=== PATIENT | male | born 1980 | race African-American/Black ===

== ENCOUNTER 2020-10-04 13:25 | Inpatient (IN) | payer OTHER ==
[2020-10-04 14:17] VITALS: BMI 26.1
[2020-10-04] MEDS ORDERED: NALOXONE (NARCAN) HCL 4 MG/0.1 ML SPRAY NS PRN (14:52)
[2020-10-04] MEDS ORDERED: BISMUTH SUBSALICYLATE 262 MG/15 ML BTL PO PRN (14:52)
[2020-10-04] MEDS ORDERED: IBUPROFEN 400 MG TABLET (FP) PO PRN (14:52)
[2020-10-04] MEDS ORDERED: ONDANSETRON *ODT* 4 MG TABLET SL PRN (14:52)
[2020-10-04] MEDS ORDERED: MENTHOL/PHENOL 1 EACH UD MM PRN (14:52)
[2020-10-04] MEDS ORDERED: METHADONE HCL 10 MG TABLET (FOR DETOX USE ONLY) PO ONE (14:52)
[2020-10-04] MEDS ORDERED: METHOCARBAMOL 500 MG TABLET PO PRN (14:52)
[2020-10-04] MEDS ORDERED: cloNIDine HCL 0.1 MG TABLET PO PRN (14:52)
[2020-10-04] MEDS ORDERED: MAG HYDROX/AL HYDROX/SIMETH 30 ML UNIT-DOSE CUP PO PRN (14:52)
[2020-10-04] MEDS ORDERED: ACETAMINOPHEN 325 MG TABLET (FP) PO PRN ×2 (14:52)
[2020-10-04] MEDS ORDERED: MAGNESIUM CITRATE 300 ML BOTTLE PO PRN (14:52)
[2020-10-04] MEDS ORDERED: MAGNESIUM HYDROX 2400MG/30ML ORAL SUSPENSION 30 ML CUP PO PRN (14:52)
[2020-10-04] MEDS: PRENATAL VITAMINS W/ FOLIC ACID TABLET (FP) PO SCH (16:03)
[2020-10-04 17:08] LABS: CALCIUM 10.1 mg/dL (8.5-10.1)
[2020-10-04 17:09] LABS: ALBUMIN 3.1 g/dl (3.4-5.0); BLOOD UREA NITROGEN 9.3 mg/dL (7-18)
[2020-10-04 17:13] LABS: BILIRUBIN,TOTAL 0.2 mg/dL (0.2-1); TOT PROT 8.3 g/dl (6.4-8.2)
[2020-10-04 17:26] LABS: HEMATOCRIT 38.3 % (35.4-49); HEMOGLOBIN 12.6 GM/dL (11.7-16.9); MCH 25.7 pg (25.7-33.7); MCHC 32.8 g/dl (32.0-35.9); MEAN CELL VOLUME 78.4 fl (80-96); MEAN PLT VOLUME 10.8 fl (7.5-11.1); PLATELET COUNT 416 K/MM3 (134-434); RBC 4.89 M/mm3 (4.00-5.60); RDW 14.1 % (11.9-15.9); WHITE BLOOD COUNT 15.7 K/mm3 (4.0-10.0)
[2020-10-04] MEDS: hydrOXYzine PAMOATE 25 MG CAPSULE (FP) PO SCH ×2 (18:41→22:35)
[2020-10-04] MEDS: DOXYCYCLINE MONOHYDRATE 100 MG PO SCH (18:41)
[2020-10-04] MEDS ORDERED: THIAMINE HCL 100 MG TABLET (FP) PO SCH (22:00)
[2020-10-04] MEDS ORDERED: MELATONIN 5 MG TABLETS PO SCH (22:00)
[2020-10-05] MEDS: hydrOXYzine PAMOATE 25 MG CAPSULE (FP) PO SCH ×3 (06:26→13:49)
[2020-10-05 08:46] VITALS: PULSE 63
[2020-10-05] MEDS ORDERED: METHADONE HCL 10 MG TABLET (FOR DETOX USE ONLY) ONE (09:23)
[2020-10-05] MEDS ORDERED: METHADONE HCL 5 MG TABLET (FOR DETOX USE ONLY) ONE (09:23)
[2020-10-05] MEDS ORDERED: METHADONE (DETOX) 20 MG, METHADONE (DETOX) 5 MG PO ONE (10:00)
[2020-10-05] MEDS ORDERED: ONDANSETRON *ODT* 4 MG TABLET SL ONE (10:09)
[2020-10-05] MEDS ORDERED: ACETAMINOPHEN 325 MG TABLET (FP) PO ONE (10:09)
[2020-10-05] MEDS ORDERED: METHOCARBAMOL 750 MG TAB PO ONE (10:15)
[2020-10-05] MEDS: DOXYCYCLINE MONOHYDRATE 100 MG PO SCH (10:24)
[2020-10-05] MEDS: PRENATAL VITAMINS W/ FOLIC ACID TABLET (FP) PO SCH (10:24)
[2020-10-05 15:14] VITALS: BP 111/52; TEMP 98
[2020-10-06] MEDS ORDERED: METHADONE HCL 10 MG TABLET (FOR DETOX USE ONLY) PO ONE (10:00)
[2020-10-07] MEDS ORDERED: METHADONE (DETOX) 10 MG, METHADONE (DETOX) 5 MG PO ONE (10:00)
[2020-10-08] MEDS ORDERED: METHADONE HCL 10 MG TABLET (FOR DETOX USE ONLY) PO ONE (10:00)
[2020-10-09] MEDS ORDERED: METHADONE HCL 5 MG TABLET (FOR DETOX USE ONLY) PO ONE (06:00)
== END 2020-10-05 16:15 | disposition left against medical advice (07) | DRG 770 ==
LOC: YASAS 13:25 → Y6N 14:41
PROVIDERS: ADMIT Allergy & Immunology; ATTEND Allergy & Immunology
PROC: HZ2ZZZZ Detoxification Services for Substance Abuse Treatment (ICD-10-PCS; principal; 2020-10-04)
DX: F11.23 Opioid dependence with withdrawal (principal); F14.20 Cocaine dependence, uncomplicated; L03.113 Cellulitis of right upper limb; L03.114 Cellulitis of left upper limb; D72.829 Elevated white blood cell count, unspecified; H91.3 Deaf nonspeaking, not elsewhere classified
CPT/HCPCS: 36415; 80053; 85027; 86780; 93005; 93010; C9803; Q0162; U0003; U0005